=== PATIENT | female | born 1990 | race Caucasian/White ===

== ENCOUNTER 2021-10-18 07:34 | Emergency (ER) | payer BC ==
[~2021-10-18] VITALS: Ht 165.1 cm; Wt 95.3 kg
[2021-10-18 08:12] VITALS: BP 129/76
[2021-10-18] MEDS ORDERED: IBUPROFEN 600 MG TABLET ONE (08:24)
[2021-10-18] MEDS ORDERED: CEPHALEXIN MONOHYDRATE 500 MG CAPSULE PO ONE ×2 (08:24→08:30)
--- NOTE | 2021-10-18 08:25 | NUR ---
BIB WALK IN, C/O LACERATION ON R FOOT, STEPPED ON A NAIL THIS MORNING.
[2021-10-18] MEDS ORDERED: IBUPROFEN 600 MG TABLET PO ONE (08:30)
[2021-10-18] MEDS ORDERED: TDAP [DIPH/PERTUSSIS/TET] 0.5 ML VIAL IM ONE ×2 (08:30→08:42)
--- NOTE | 2021-10-18 08:41 | NUR ---
XRAY AT BEDSIDE
--- NOTE | 2021-10-18 09:01 | NUR ---
XRAY COMPLETE, PT RESTING COMFORTABLE IN BED
[2021-10-18] MEDS ORDERED: IBUP-1957 PO (09:46)
[2021-10-18] MEDS ORDERED: CEPH500C2 PO (09:46)
--- NOTE | 2021-10-18 09:51 | NUR ---
Patient discharged to home in stable condition. Written and verbal after care instructions given. Patient verbalizes understanding of instruction.
== END 2021-10-18 10:04 | disposition home or self-care (01) ==
LOC: ER 07:38
DX: S91.331A Puncture wound without foreign body, right foot, initial encounter (principal); W26.8XXA Contact with other sharp object(s), not elsewhere classified, initial encounter; Y93.89 Activity, other specified; Y92.89 Other specified places as the place of occurrence of the external cause; Y99.8 Other external cause status
CPT/HCPCS: 73630-TC; 90715